=== PATIENT | female | born 1995 | race Caucasian/White ===

== ENCOUNTER 2020-10-09 00:40 | Emergency (ER) | payer MEDICAID ==
[~2020-10-09] VITALS: Ht 160 cm; Wt 76.0 kg
[2020-10-09] MEDS ORDERED: penicillin V potassium 500mg tablet PO ONE (02:50)
[2020-10-09] MEDS ORDERED: ketorolac tromethamine 15mg/ml inj. IM ONE (02:50)
[2020-10-09] MEDS ORDERED: PENI500T2 PO (02:52)
[2020-10-09 03:16] VITALS: BP 124/76
== END 2020-10-09 03:22 | disposition home or self-care (01) ==
LOC: ER 00:41
DX: K05.10 Chronic gingivitis, plaque induced (principal); K08.89 Other specified disorders of teeth and supporting structures; Z79.899 Other long term (current) drug therapy
CPT/HCPCS: 96372; 99283; J1885

== ENCOUNTER 2023-03-04 17:23 | Emergency (ER) | payer MEDICAID ==
[~2023-03-04] VITALS: Ht 167.6 cm; Wt 77.3 kg
[2023-03-04 17:32] VITALS: BP 90/75; PULSE 82; TEMP 98.3; O2SAT 95
[2023-03-04] MEDS ORDERED: bacitracin 15gm ointment TP ONE (17:50)
[2023-03-04 18:05] VITALS: RESP 16
[2023-03-04] MEDS ORDERED: MUPI22OI30 TP (18:05)
[2023-03-04] MEDS ORDERED: CEPH500C2 PO (18:05)
[2023-03-04] MEDS ORDERED: IBUP-1984 PO (18:05)
--- NOTE | 2023-03-04 18:09 | NUR ---
I have reviewed and agree with all interventions, assessments performed and documented by LAM Drew.
== END 2023-03-04 18:19 | disposition home or self-care (01) ==
LOC: ER 17:25
DX: S21.011A Laceration without foreign body of right breast, initial encounter (principal); X58.XXXA Exposure to other specified factors, initial encounter; Y93.89 Activity, other specified; Y92.89 Other specified places as the place of occurrence of the external cause; Y99.8 Other external cause status
CPT/HCPCS: 99283; A6258